=== PATIENT | female | born 1940 | race Caucasian/White ===

== ENCOUNTER → 2023-05-24 13:31 | Outpatient (REF) | payer OTHER, SELFPAY | LOC: DHCBS MAIN 13:31 | PROVIDERS: ATTENDING PHYSICIAN Internal Medicine Cardiovascular Disease; FAMILY PHYSICIAN Family Medicine | DX: I10 Essential (primary) hypertension (principal) | CPT/HCPCS: 93306 ==

== ENCOUNTER → 2023-07-17 15:53 | Outpatient (REF) | payer OTHER, SELFPAY ==
[2023-07-17 17:30] LABS: Blood Urea Nitrogen 22 mg/dl (7-17); Calcium 9.7 mg/dl (8.4-10.2); Carbon Dioxide 32 mmol/L (22-30); Chloride 98 mmol/L (98-107); Glucose 100 mg/dl (70-99); Potassium 3.8 mmol/L (3.5-5.1); Sodium 135 mmol/L (135-145); eGFR > 60.00
== END ==
LOC: REG 15:53
PROVIDERS: ATTENDING PHYSICIAN Family Medicine
DX: R10.9 Unspecified abdominal pain (principal)
CPT/HCPCS: 36415; 80048

== ENCOUNTER → 2023-07-22 12:23 | Outpatient (REF) | payer OTHER, SELFPAY | LOC: RAD 12:23 | PROVIDERS: ATTENDING PHYSICIAN Family Medicine; REFERRING PHYSICIAN Student in an Organized Health Care Education/Training Program | DX: R10.33 Periumbilical pain (principal) | CPT/HCPCS: 74177; Q9967 ==

== ENCOUNTER 2023-10-07 00:41 | Inpatient (IN) | payer OTHER, SELFPAY ==
[2023-10-06] VITALS (11 sets, daily range): BP systolic 88–109; BP diastolic 47–70; BMI 16.4
[2023-10-06 19:52] LABS: Hematocrit 35.7 % (37.0-47.0); Hemoglobin 12.6 g/dL (12.0-16.0); Mean Corp Hgb Conc. 35.3 g/dL (33.0-37.0); Mean Corpuscular Hgb 28.1 pg (27.0-31.0); Mean Corpuscular Volume 79.5 fL (81.0-99.0); Nucleated Red Blood Cells % 0 %; Red Blood Cell Count 4.49 10^6/uL (4.20-5.40); Red Cell Dist. Width 14.2 % (11.5-14.5); White Blood Cell Count 5.1 10^3/uL (4.8-10.8)
[2023-10-06 20:01] LABS: Lactic Acid 1.3 mmol/L (0.7-2.0)
[2023-10-06] MEDS: NSS 1000 IV ×2 (20:01→22:17)
[2023-10-06 20:02] LABS: ALT (SGPT) 21 U/L (0-35); AST (SGOT) 36 U/L (14-36); Alkaline Phosphatase 93 U/L (38-126); Blood Urea Nitrogen 52 mg/dl (7-17); Calcium 8.6 mg/dl (8.4-10.2); Carbon Dioxide 28 mmol/L (22-30); Chloride 94 mmol/L (98-107); Estimated Creatinine Clearance 26 ml/min; Glucose 116 mg/dl (70-99); Lipase 144 U/L (23-300); Potassium 3.7 mmol/L (3.5-5.1); Sodium 130 mmol/L (135-145); Total Bilirubin 1.7 mg/dl (0.2-1.3); Total Protein 7.1 g/dl (6.3-8.2); eGFR 41.06
[2023-10-06 20:13] LABS: Troponin I < 0.012 ng/ml
--- NOTE | 2023-10-06 20:17 | ED.GENMED ---
History of Present Illness
General
Chief Complaint: Abdominal Symptoms
Source: patient
Exam Limitations: none
Time Seen by Provider: 10/06/23 19:27
Nursing documentation reviewed up to this point in time: agreed with
History of Present Illness
History of Present Illness:
This a pleasant 82-year-old female who presents with right upper quadrant abdominal pain. She has had this pain for the last week. Today she developed fever and nausea. states that she has not been able to eat normally during this time.
She feels nauseated and has minimal appetite. Denies constipation or diarrhea. Reports no difficulty urinating. Denies fever prior to today but today she has had a 101.2 fever. Reports no previous abdominal surgery. 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
right eye since 2019.
Past History
Past History
ED Past Medical History: Cancer
ED Past Surgical History: Gynecological (Bilateral mastectomy)
Social History
Tobacco: Non-smoker
Personal:
Living: with family
Review of Systems
Review of Systems
Allergies reviewed?: Yes
Other source history: family
All Other Systems: ROS reviewed and negative except as documented in HPI and ROS
Constitutional: Reports weight loss and fatigue
EENT: Reports no symptoms
Respiratory: Reports no symptoms
Cardiac: Reports no symptoms
ABD/GI: Reports abdominal pain, nausea and vomiting; Denies bloody stools
: Reports no symptoms
Musculoskeletal: Reports no symptoms
Skin: Reports no symptoms
Neurological: Reports no symptoms
Endocrine: Reports no symptoms
Hematologic/Lymphatic: Reports no symptoms
Psychiatric: Reports no symptoms
Phy Exam
General Physical Exam
General Presentation: well appearing and mild distress
General age: appears stated age
General Skin: warm and dry
General Habitus: cachetic, elderly and frail
General Mental: alert
General Hydration: appears well hydrated
ENT Exam
ENT Exam: EOMI, pharynx normal, neck supple and normocephalic
Eye Exam
Eye Exam: PERRL, cornea clear and conjunctiva normal
Cardiovascular Exam
Cardiovascular Exam: regular rate/rhythm, no edema, no murmur and normal peripheral pulses
Pulmonary Exam
Pulmonary Exam: lungs clear, no respiratory distress, no rales, no crackles, no rhonchi, no stridor, no wheezing and no cough
Gastrointestinal Exam
Gastrointestinal Exam: normal bowel sounds
Palpation: right upper quadrant: Mild tenderness and generalized: No tenderness
Neurological Exam
Neurological Exam: alert, oriented x3, no motor deficits and speech normal
Musculoskeletal Exam
Musculoskeletal Exam: full ROM and no edema
Skin Exam
Skin Exam: normal color, warm/dry, no rash and no petechia
Psychiatric Exam
Psychiatric Exam: normal mood/affect
Course
Orders/Labs/Results
Orders:
Orders
10/06/23 19:17
Electrocardiogram (*1) Urgent
Reason for Study: Abdominal Pain
10/06/23 19:18
EKG- Treatment ONCE
10/06/23 19:24
IV Insert/Care/Rem.- Treatment PRN
10/06/23 19:31
Cardiac Monitoring- Treatment ONCE
10/06/23 19:38
Complete Blood Count/With Diff Urgent
Comprehensive Metabolic Panel Urgent
Lactic Acid Q4H
Comment: ON ICE, CANCEL 2ND ORDER IF FIRST LACTIC ACID LEVEL <2
Lipase Urgent
Manual Differential Urgent
Troponin I Urgent
Blood Culture Q30M
SHELBI Source: Blood/Venous
Specimen Description:
Comment: FROM 2 SEPARATE SITES
10/06/23 19:47
US Abdomen Complete/Upper Urgent
Comment:
Reason For Exam: abd pain, fever
10/06/23 19:48
0.9% Sodium Chloride 1000 ml [Nss] 1,000 ml IV BOLUS
10/06/23 20:03
Blood Culture Q30M
SHELBI Source: Blood/Venous
Specimen Description:
Comment: FROM 2 SEPARATE SITES
10/06/23 20:37
Acetaminophen 1000MG/100Ml [Ofirmev] 1,000 mg in 100 ml .ROUTE .STK-MED
10/06/23 20:45
Acetaminophen 10 mg/ml [Ofirmev] 735 mg Empty Viaflex Container 100 ml [Viaflex Empty Container] 0 ml IV ONCE
10/06/23 21:48
CT Chest Pe Study Urgent
Comment:
Reason For Exam: right lower lobe pain with inspiration
10/06/23 22:15
0.9% Sodium Chloride 1000 ml [Nss] 1,000 ml IV 250 mls/hr
10/06/23 22:37
Morphine Sulfate 2 mg .ROUTE .STK-MED ONE
10/06/23 22:39
Morphine Sulfate 2 mg IV NOW STA
Abnormal Lab Results
10/06/23
19:38
Hct 35.7 L %
(37.0-47.0)
MCV 79.5 L fL
(81.0-99.0)
Plt Count 70 L 10^3/uL
(130-400)
MPV 12.6 H fL
(7.4-10.4)
Monocytes (Manual) 15 H %
(2-9)
Sodium 130 L mmol/L
(135-145)
Chloride 94 L mmol/L
(98-107)
BUN 52 H mg/dl
(7-17)
Creatinine 1.3 H mg/dL
(0.6-1.0)
Glucose 116 H mg/dl
(70-99)
Total Bilirubin 1.7 H mg/dl
(0.2-1.3)
10/06/23 19:38
10/06/23 19:38
Vital Signs
Initial and Last Documented VS:
Initial Vital Signs
Temp Pulse Resp BP Pulse Ox
98.4 F 98 18 98/70 94
10/06/23 19:15 10/06/23 19:15 10/06/23 19:15 10/06/23 19:15 10/06/23 19:15
Last Documented Vital Signs
Temp Pulse Resp BP Pulse Ox
99.6 F 68 18 91/48 97
10/06/23 21:45 10/06/23 23:20 10/06/23 23:20 10/06/23 23:20 10/06/23 23:20
MDM/Problems Addressed
Differential Diagnosis Includes:
Cholecystitis, gastritis, colitis
MDM/Problems Addressed:
82-year-old female with abdominal pain in the right upper quadrant. Fever, loss of appetite.
*Radiology
Radiology exam reviewed: radiology read reviewed
*Pulse Oximetry
Patient hypoxic: yes
*Critical Care Note
Total Time (30-74mins, 75-104mins- exclusive of procedures): Not Applicable
Update Note
Update Note:
Back in to see the patient. We discussed lab work and ultrasound findings. Patient states that she is still having pain especially with inspiration. Will CT her chest.
CTPA
IMPRESSION:
Satisfactory contrast bolus, though assessment of some left lower lobe segmental and subsegmental branches is nondiagnostic due to motion artifact. Otherwise, no evidence of PE seen elsewhere.
Nodular opacities and tree-in-bud nodularity within the right upper lobe, right middle lobe, and right lower lobe, with mild bronchial wall thickening. This likely represents multifocal bronchopneumonia. Follow-up CT to assess for resolution is
recommended.
Additional findings: Left lower lobe pulmonary cyst. Bilateral breast implants. Vascular calcifications. DJD. Previous bilateral axillary chance dissections.
Patient had oxygen desaturation 80 to 89% on room air. Given the fact that she has pneumonia and desaturation, patient to be brought into the hospital for continued treatment. On 2 L nasal cannula her oxygen saturation is 97%.
ED Attending Note
-
Portions of this chart may have been created with voice recognition software.� Occasional wrong word or��sound alike� substitutions may have occurred due to the inherent limitations of voice recognition software.
Discharge Plan
Departure
Patient Disposition: Admit
Date of Disposition: 10/06/23
Time of Disposition: 23:38
Admit to: Telemetry
Presentation/result/management discussed w/ accepting MD/DO: Hospitalist
Discharge Problem:
Pneumonia, Hypoxia
Prescriptions:
No Action
metoprolol succinate 50 mg Tablet Extended Release 24 Hr
50 mg PO DAILY
amlodipine 2.5 mg Tablet
2.5 mg PO DAILY
losartan-hydrochlorothiazide 100-25 mg Tablet
1 tab PO DAILY
Referrals:
Argenis Gardner DO [Family Provider] -
Interventions
Interventions:
*Risk Screen - Suicide Last Done: 10/06/23 19:15
*General Assessment Last Done: 10/06/23 19:15
*Neglect/Abuse Screening Last Done: 10/06/23 19:15
QE-Uzwfqd-Dikxlswngw Assessment Last Done: 10/06/23 19:40
Discharge Date and Time
Print Language: ARGENTINE
[2023-10-06 20:26] LABS: Lymphocytes 31 % (20-51); Monocytes 15 % (2-9); Normal RBC Morphology Yes; Platelets Checked Yes; Total Cells Counted 100
[2023-10-06 20:27] LABS: Absolute Neutrophils -Man Diff 2.3 10^3/uL (1.4-6.5); Band Neutrophils 2 % (0-3); Segmented Neutrophils 44 % (42-75)
[2023-10-06 20:28] LABS: Mean Platelet Volume 12.6 fL (7.4-10.4); Platelet Count 70 10^3/uL (130-400)
[2023-10-06] MEDS: OFIRMEV 73.5 MG IV (21:10)
[2023-10-06] MEDS: MORPHINE SULFATE 2 MG IV (22:39)
[2023-10-06] MEDS: LEVAQUIN 150 IV (23:46)
[2023-10-07] VITALS (48 sets, daily range): BP systolic 81–137; BP diastolic 44–96; PULSE 76–98; O2SAT 90–96; BMI 17.2
--- NOTE | 2023-10-07 00:35 | HPS.HSE ---
Family Physician
-
Family Physician: Argenis Gardner
Chief Complaint
-
Anorexia, Abd Pain, Nausea
History of Present Illness
Patient is an 82y F with PMH significant for hypertension and BRAO / CVA who presents to ED complaining of abdominal pain, anorexia, nausea and fatigue. Patient states that she has been having intermittent discomfort in the RUQ area for the
past month or so. She notes poor appetite in general and nausea without emesis. Patient reports that her symptoms have been more severe over the past week. She states that she has not moved her bowels in about one week. She has also noted that
her BP at home has been running 'very low'. She did not take her usual medications today - but notes that she had been taking them prior to that. She reports shaking chills intermittently at home as well. No sore throat, cough, dyspnea or urinary
complaints. No known sick contacts. No recent med changes.
Patient denies any prior history of similar symptoms.
Medical History
Past Medical History
Past Medical History: Reports Other
Additional Past Medical History:
Hypertension
COPD
CRAO / CVA with Vision Loss
Breast Cancer
Melanoma
Past Surgical History: Reports Other
Additional Past Surgical History:
Bilateral Mastectomies
Bilateral Breast Reconstruction / Implants
T&A
Right Femur ORIF
Right WICHO
Social History
Tobacco: Former Smoker (Quit smoking in 1980s. Approx 20 pack years total use.)
Alcohol: Daily (1 glass wine daily)
Family History
Family History: Not pertinent
Allergies / Home Medications
Allergies reflects when Allergies were last updated in [employer].
Home Medications with original date entered in [employer]
Allergy/Medication List:
Allergies
Allergy/AdvReac Type Severity Reaction Status Date / Time
SESAR Inhibitors Allergy Anaphylaxis Verified 09/25/21 08:01
Penicillins Allergy Swelling Verified 09/25/21 08:01
of legs
Home Medications
amlodipine 2.5 mg tablet 2.5 mg PO DAILY 10/06/23
losartan 100 mg-hydrochlorothiazide 25 mg tablet 1 tab PO DAILY 10/06/23
metoprolol succinate 50 mg tablet,extended release 24 hr 50 mg PO DAILY 10/06/23
Review of Systems
-
History Source: Patient
A 12 point ROS was completed and negative except as noted: Yes
Constitutional: Reports Fever, Fatigue and Chills
EENT: Denies Sore Throat
Respiratory: Denies Cough, Hemoptysis or Trouble Breathing
Cardiac: Denies Chest Pain or Palpitations
Abdomen/GI: Reports Abdominal Pain, Nausea, Constipated and Anorexia; Denies Vomiting, Diarrhea, Bloody Stools or Black Stools
: Denies Dysuria, Frequency or Flank Pain
Musculoskeletal: Denies Joint Pain or Edema
Neurological: Denies Dizzy or Headache
Psych: Denies Depression or Anxiety
Physical Exam
Vital Signs
Vital Signs
Temp Pulse Resp BP Pulse Ox
99.6 F 76 21 93/44 98
10/06/23 21:45 10/07/23 00:30 10/07/23 00:30 10/07/23 00:30 10/07/23 00:30
Physical Exam
General: Other (82y F in no acute distress.)
HEENT: Moist mucous membranes
Respiratory: Clear; No Wheezes, Rales or Rhonchi
Cardiac: S1/S2 and Regular Rhythm; No Murmur
GI: Soft, Non Distended, Normal Bowel Sounds and Other (Mild RUQ tenderness without rebound / guarding. Pos BS.)
Musculoskeletal: No Clubbing, No Cyanosis and No Edema
Neuro: AO x 3
Laboratory Results
-
10/06/23 19:38
10/06/23 19:38
Laboratory Results
Lactic Acid Cancelled 10/06/23 23:45
Total Bilirubin 1.7 mg/dl (0.2-1.3) H 10/06/23 19:38
AST 36 U/L (14-36) 10/06/23 19:38
ALT 21 U/L (0-35) 10/06/23 19:38
Alkaline Phosphatase 93 U/L (38-126) 10/06/23 19:38
Troponin I < 0.012 ng/ml 10/06/23 19:38
Lipase 144 U/L (23-300) 10/06/23 19:38
Impression/Plan
-
A/P: Patient is an 82y F with PMH significant for hypertension and COPD who presents to ED complaining of abdominal discomfort, nausea and anorexia x weeks / one month.
Abdominal Pain
Nausea
- Admit for further evaluation and treatment.
- Symptoms potentially secondary to RLL process (see below).
- Check CT A/P given predominance of GI complaints and absence of pulmonary complaints.
- Supportive care for now.
- Avoid further hypotension. Treat underlying constipation. Follow for clinical improvement.
Right Bronchopneumonia
Acute Hypoxemic Respiratory Insufficiency
- CT scan with [id number] abnormalities in the R lung suspicious for bronchopneumonia.
- Negative for PE.
- Patient with fever here to 101.2 and SpO2 = 89% on room air.
- No cough, dyspnea, etc.
- Her RUQ pain is not pleuritic in nature.
- Continue levofloxacin for now.
- Follow-up additional work-up / evaluations.
- Follow for any new respiratory complaints.
CLEOPATRA
Hypotension
Mild Hyponatremia
History of Benign Hypertension
- SCr = 1.3 compared to known baseline of 0.8.
- Likely prerenal +/- degree of ATN due to hypotension.
- Hold all BP medications for now.
- IVF support overnight.
- Follow for improvement in BP / perfusion and return to baseline renal function.
- Follow for improvement in nausea, etc as well with improvement in BP / perfusion.
Thrombocytopenia
- Unclear etiology. No new meds, etc.
- ? secondary to infectious process.
- No evidence of anemia, red cell destruction, etc.
- Follow for any evidence of bleeding, ecchymosis or worsening platelet counts.
COPD without Acute Exacerbation
- No wheezing on exam. No pulmonary complaints from patient perspective.
- Has Rx for nebs to be used BID, but states that she only takes these PRN.
- DuoNebs ATC for now. Albuterol PRN.
CRAO / CVA
- Stable. Vision loss s/p prior insult.
- Monitor for any new issues / complaints.
DVT Prophylaxis: SCDs
Code Status: Full
[2023-10-07] MEDS: OMNIPAQUE 50 ML PO (00:50)
[2023-10-07 01:18] LABS: Procalcitonin 0.59 ng/ml (0.0-0.25)
--- NOTE | 2023-10-07 02:00 | PTCARENOTE ---
rec`d pt at 0200 AAOx3. blind in right eye since 2019. SR on monitor. scds. LR running. 20 left FA, 18LAC flushed and patent. + pulses. no edema. Dry cough. 4L NC POX 98%. diminished lung sounds. RLL coarse. no BM for a week per the pt. pt urinates
in toilet w/ 1 assist. skin c/d/i. call curry in reach. safe environment maintained.
[2023-10-07] MEDS: LR 1000 IV ×3 (02:23→19:00)
[2023-10-07 03:41] LABS: Hematocrit 31.8 % (37.0-47.0); Hemoglobin 10.9 g/dL (12.0-16.0); Mean Corp Hgb Conc. 34.3 g/dL (33.0-37.0); Mean Corpuscular Hgb 27.9 pg (27.0-31.0); Mean Corpuscular Volume 81.5 fL (81.0-99.0); Mean Platelet Volume 12.1 fL (7.4-10.4); Platelet Count 54 10^3/uL (130-400); Red Cell Dist. Width 14.5 % (11.5-14.5)
[2023-10-07 04:06] LABS: ALT (SGPT) 18 U/L (0-35); AST (SGOT) 31 U/L (14-36); Alkaline Phosphatase 79 U/L (38-126); Blood Urea Nitrogen 42 mg/dl (7-17); Calcium 7.7 mg/dl (8.4-10.2); Carbon Dioxide 25 mmol/L (22-30); Chloride 99 mmol/L (98-107); Direct Bilirubin 0.2 mg/dl (0.0-0.4); Estimated Creatinine Clearance 34 ml/min; Glucose 105 mg/dl (70-99); Magnesium 2.1 mg/dl (1.6-2.3); Phosphorus 3.3 mg/dl (2.5-4.5); Potassium 3.3 mmol/L (3.5-5.1); Sodium 131 mmol/L (135-145); Total Bilirubin 1.2 mg/dl (0.2-1.3); Total Protein 5.8 g/dl (6.3-8.2); eGFR 56.25
[2023-10-07 04:36] LABS: TSH Reflex To Free T4 4.73 uIU/ml (0.47-4.68)
[2023-10-07 05:04] LABS: Free T4 1.45 ng/dl (0.78-2.19)
[2023-10-07] MEDS: KCL 20 MEQ PO (05:09)
[2023-10-07] MEDS: COMPAZINE 5 MG IV (06:00)
[2023-10-07] MEDS: TYLENOL 650 MG PO ×2 (06:02→17:08)
[2023-10-07] MEDS: DUONEB 3 ML INH ×4 (07:57→19:31)
[2023-10-07] MEDS: COLACE PO ×2 (09:07→20:53)
[2023-10-07] MEDS: MIRALAX PO (09:08)
[2023-10-07] MEDS: NSS (PRESERVATIVE FREE) 10 ML IV (09:24)
[2023-10-07] MEDS: PROTONIX IV 40 MG IV (09:25)
--- NOTE | 2023-10-07 09:33 | PTCARENOTE ---
report received, assessments per work list. patient c/o intermittent mid/upper abdominal discomfort, described as sharp and intermittent. received Tylenol@0600. patient assisted to bedside commode, dizziness with position changes and standing. very
weak. orthostatic bp's as per work list. monitor nsr with pac. abdomen soft, nontender hyper active bowel sounds. voided dejan urine in commode. lungs with coarse breath sounds. diminished throughout. refusing oral medications at this time. states
'I want to go home'. call curry in reach. sleeping unless disturbed
--- NOTE | 2023-10-07 10:44 | PTCARENOTE ---
Addendum entered by Carol Cervantes RN 10/07/23 11:36:
report to oncoming RN
Original Note:
blood pressure trends per work list. Dr Alfaro updated by tiger text, at bedside to evaluate patient
--- NOTE | 2023-10-07 12:33 | W.PN.HOSP.TC ---
Today's Communication/Plan
-
IV abx
trend bp
monitor diet tolerance
Assessment / Plan
Assessment / Plan
General: Other (82y F in no acute distress.)
HEENT: Moist mucous membranes
Respiratory: Clear; No Wheezes, Rales or Rhonchi
Cardiac: S1/S2 and Regular Rhythm; No Murmur
GI: Soft, Non Distended, Normal Bowel Sounds and Other (Mild RUQ tenderness without rebound / guarding. Pos BS.)
Musculoskeletal: No Clubbing, No Cyanosis and No Edema
Neuro: AO x 3
A/P: Patient is an 82y F with PMH significant for hypertension and COPD who presents to ED complaining of abdominal discomfort, nausea and anorexia x weeks / one month.
Abdominal Pain
Nausea
- Symptoms potentially secondary to RLL process (see below).
- Check CT A/P -no acute findings in the abdomen/pelvis.
- Supportive care for now.
- Avoid further hypotension. Treat underlying constipation. Follow for clinical improvement.
Right Bronchopneumonia
Acute Hypoxemic Respiratory Insufficiency
- CT scan with [id number] abnormalities in the R lung suspicious for bronchopneumonia.
- Negative for PE.
- Patient with fever here to 101.2 and SpO2 = 89% on room air.
- No cough, dyspnea, etc.
- Her RUQ pain is not pleuritic in nature.
- Continue levofloxacin for now.
- Follow-up additional work-up / evaluations.
- Follow for any new respiratory complaints.
CLEOPATRA
Hypotension
Mild Hyponatremia
History of Benign Hypertension
- Creatinine is improving.
- Likely prerenal +/- degree of ATN due to hypotension.
- Hold all BP medications for now.
- IVF support. Levophed ordered but BP improved.
- Follow for improvement in BP / perfusion and return to baseline renal function.
- Follow for improvement in nausea, etc as well with improvement in BP / perfusion.
Thrombocytopenia
- Unclear etiology. No new meds, etc.
- ? secondary to infectious process.
- No evidence of anemia, red cell destruction, etc.
- Follow for any evidence of bleeding, ecchymosis or worsening platelet counts.
COPD without Acute Exacerbation
- No wheezing on exam. No pulmonary complaints from patient perspective.
- Has Rx for nebs to be used BID, but states that she only takes these PRN.
- DuoNebs ATC for now. Albuterol PRN.
CRAO / CVA
- Stable. Vision loss s/p prior insult.
- Monitor for any new issues / complaints.
Hypokalemia
-replete/monitor
Subclinical hypothyroidism
-repeat TFTs in 4-6 weeks
DVT Prophylaxis: SCDs in setting of thrombocytopenia
Code Status: Full
Anticipated Discharge: > 48 hours
Subjective/Interval History
-
Date of Service: October 07, 2023
complains R sided chest pain below rib cage
no epigastric pain
no nausea or vomiting
Objective Data
-
Labs:
Laboratory Results
10/07/23
03:31
WBC 4.0 L
Hgb 10.9 L
Hct 31.8 L
Plt Count 54 L D
Sodium 131 L
Potassium 3.3 L
Chloride 99
Carbon Dioxide 25
BUN 42 H
Creatinine 1.0
Glucose 105 H
Calcium 7.7 L
Total Bilirubin 1.2
AST 31
ALT 18
Alkaline Phosphatase 79
Vital Signs:
Vital Signs
Temp Pulse Resp BP Pulse Ox
97.8 F 77 19 113/66 97
10/07/23 11:12 10/07/23 11:30 10/07/23 11:30 10/07/23 12:00 10/07/23 11:30
I&O
10/06/23 10/07/23 10/08/23
06:59 06:59 06:59
Intake Total 375 / 500 750 / 750
Output Total 900 / 900 450 / 450
Balance -525 / -400 300 / 300
--- NOTE | 2023-10-07 13:12 | CM ---
CM following re: discharge planning.
Reviewed pt's chart, met with pt.
Pt is an 82 year old female, admitted with primary dx of Hypotension.
Pt reports she lives with in a [address], 4 steps to enter, has a son and is estranged from the family. pt brought to me her tearful feelings regarding their son stating that they adopted him at the age of 3 and they have not been hearing from him
for 4 years. Pt stated that all her energy and dedication did not bring a good result. Emotional support with reassurance offered and provided. Pt described herself as independent in all areas [employer], has RW, cane, raised toiled sit and she does not
use them. Pt expressed her desire to return back home at discharge and she anticipated no needs at discharge.
PCP: Argenis Gardner
Pharmacy: [facility].
D/C plan: home with anticipated no needs. Spouse to transport at discharge.
CM will follow with discharge pkan updates as hospitalization progresses
--- NOTE | 2023-10-07 13:54 | PTCARENOTE ---
Pt oob to chair w/ PT. Sat in chair for 30 min and wanted to get back to bed. Pt w/ rigors - temp checked multiple times but afebrile.
--- NOTE | 2023-10-07 20:30 | PTCARENOTE ---
human resources analyst, pt aaox3, denies pain. SR HR 80s-90s. pt assist x 1 to void in bathroom, assist back to chair. LA IV x 2 WNL- LR infusing per work list. RA Sat 94%. call patricio w/pt.
[2023-10-07] MEDS: SENOKOT PO (20:53)
[2023-10-07] MEDS: LEVAQUIN 50 IV (21:56)
[2023-10-08] VITALS (16 sets, daily range): BP systolic 90–132; BP diastolic 50–77; PULSE 77–106; O2SAT 96; BMI 18.2
[2023-10-08] MEDS: LR 1000 IV (03:30)
[2023-10-08 05:10] LABS: Hematocrit 29.6 % (37.0-47.0); Mean Corp Hgb Conc. 33.8 g/dL (33.0-37.0); Mean Corpuscular Volume 82.9 fL (81.0-99.0); Mean Platelet Volume 12.5 fL (7.4-10.4); Platelet Count 54 10^3/uL (130-400); Red Blood Cell Count 3.57 10^6/uL (4.20-5.40); Red Cell Dist. Width 14.3 % (11.5-14.5); White Blood Cell Count 4.4 10^3/uL (4.8-10.8)
[2023-10-08 05:35] LABS: Blood Urea Nitrogen 20 mg/dl (7-17); Calcium 8.1 mg/dl (8.4-10.2); Carbon Dioxide 25 mmol/L (22-30); Chloride 100 mmol/L (98-107); Estimated Creatinine Clearance 62 ml/min; Glucose 101 mg/dl (70-99); Potassium 3.9 mmol/L (3.5-5.1); Sodium 131 mmol/L (135-145); eGFR > 60.00
[2023-10-08] MEDS: DUONEB 3 ML INH ×4 (07:58→19:51)
[2023-10-08] MEDS: ProAmatine 5 MG PO ×3 (08:44→18:20)
[2023-10-08] MEDS: MIRALAX 17 GRAMS PO (08:44)
[2023-10-08] MEDS: NSS (PRESERVATIVE FREE) 10 ML IV (08:44)
[2023-10-08] MEDS: PROTONIX IV 40 MG IV (08:45)
[2023-10-08] MEDS: COLACE 100 MG PO ×2 (08:45→21:31)
--- NOTE | 2023-10-08 10:15 | PTCARENOTE ---
Patient oob to chair for breakfast, denies pain and nausea at this time. Pt requires standby assistance when ambulating due to unsteady gait/generalized weakness. RN provided education to patient on diet, plan of care, and medications. Patient has
call curry within reach, rings appropriately for oob assistance and makes needs known.
--- NOTE | 2023-10-08 12:07 | W.PN.HOSP.TC ---
Today's Communication/Plan
-
abx
monitor BP
trend cr
dc IVF
Advanced diet
tx out of IMU
pt/ot
Assessment / Plan
Assessment / Plan
General: Other (82y F in no acute distress.)
HEENT: Moist mucous membranes
Respiratory: Clear; No Wheezes, Rales or Rhonchi
Cardiac: S1/S2 and Regular Rhythm; No Murmur
GI: Soft, Non Distended, Normal Bowel Sounds and Non tender
Musculoskeletal: No Clubbing, No Cyanosis and No Edema
Neuro: AO x 3
A/P: Patient is an 82y F with PMH significant for hypertension and COPD who presents to ED complaining of abdominal discomfort, nausea and anorexia x weeks / one month.
Abdominal Pain
Nausea
- Symptoms potentially secondary to RLL process (see below).
- Check CT A/P -no acute findings in the abdomen/pelvis.
- Supportive care for now.
- Avoid further hypotension. Treat underlying constipation. Follow for clinical improvement.
Right Bronchopneumonia
Acute Hypoxemic Respiratory Insufficiency
- CT scan with [id number]-spd abnormalities in the R lung suspicious for bronchopneumonia.
- Negative for PE.
- Patient with fever here to 101.2 and SpO2 = 89% on room air on admisison
- No cough, dyspnea, etc.
- Her RUQ pain is not pleuritic in nature.
- Continue levofloxacin for now.
- Follow-up additional work-up / evaluations.
- Follow for any new respiratory complaints.
CLEOPATRA
Hypotension
Mild Hyponatremia
History of Benign Hypertension
- Creatinine improved.
- Likely prerenal +/- degree of ATN due to hypotension.
- Hold all BP medications for now.
- IVF support. Levophed ordered but BP improved. Started midodrine.
- Follow for improvement in BP / perfusion and return to baseline renal function.
- Follow for improvement in nausea, etc as well with improvement in BP / perfusion.
Thrombocytopenia
- Unclear etiology. No new meds, etc.
- ? secondary to infectious process.
- No evidence of anemia, red cell destruction, etc.
- Follow for any evidence of bleeding, ecchymosis or worsening platelet counts.
COPD without Acute Exacerbation
- No wheezing on exam. No pulmonary complaints from patient perspective.
- Has Rx for nebs to be used BID, but states that she only takes these PRN.
- DuoNebs ATC for now. Albuterol PRN.
CRAO / CVA
- Stable. Vision loss s/p prior insult.
- Monitor for any new issues / complaints.
Hypokalemia
-replete/monitor
Subclinical hypothyroidism
-repeat TFTs in 4-6 weeks
DVT Prophylaxis: SCDs in setting of thrombocytopenia
Code Status: Full
PT/OT
Anticipated Discharge: > 48 hours
Subjective/Interval History
-
Date of Service: October 08, 2023
Tolerating liquids
no abd or RUQ pain
on room air
Objective Data
-
Labs:
Laboratory Results
10/08/23
04:34
WBC 4.4 L
Hgb 10.0 L
Hct 29.6 L
Plt Count 54 L
Sodium 131 L
Potassium 3.9
Chloride 100
Carbon Dioxide 25
BUN 20 H
Creatinine 0.6
Glucose 101 H
Calcium 8.1 L
Vital Signs:
Vital Signs
Temp Pulse Resp BP Pulse Ox
98.3 F 88 18 100/63 96
10/08/23 11:59 10/08/23 11:36 10/08/23 11:36 10/08/23 08:44 10/08/23 11:36
I&O
10/07/23 10/08/23 10/09/23
06:59 06:59 06:59
Intake Total 375 / 500 3360 / 3360 490 / 490
Output Total 900 / 900 450 / 450
Balance -525 / -400 2910 / 2910 490 / 490
Data Reviewed
-
Total Time Spent with Patient (in minutes): 55
--- NOTE | 2023-10-08 16:21 | CM ---
CM following re: discharge planning.
Reviewed pt's chart, met with pt earlier today.
PT and OT evaluations noted - home PT vs SNF recommended. Pt is aware and she stated she will think about but she prefers home PT and [facility] preferred.
Av referral to [facility] made.
D/C plan: home with [facility] and family support. Please confirm the plan with the pt on the day of discharge.
CM will follow with discharge plan updates as hospitalization progresses
[2023-10-08] MEDS: TYLENOL 650 MG PO (17:03)
--- NOTE | 2023-10-08 17:29 | PTCARENOTE ---
1630 Pt complained of discomfort under right breast. Pt states ' that it is a achy feeling'. VSS EKG done. Dr. Alfaro made aware. Pt medicated with Tylenol with relief. Made patient comfortable. Cont to assess patient status.
[2023-10-08 17:58] LABS: Troponin I < 0.012 ng/ml
[2023-10-08] MEDS: SENOKOT 17.1999999999999993 MG PO (21:31)
[2023-10-08] MEDS: LEVAQUIN 50 IV (21:32)
[2023-10-09 00:59] LABS: Troponin I < 0.012 ng/ml
[2023-10-09 03:15] VITALS: BP 115/65
[2023-10-09 06:00] VITALS: BMI 17.3
[2023-10-09 07:30] VITALS: BP 100/58; BP 105/60; BP 92/64; PULSE 109; PULSE 81; PULSE 93
[2023-10-09] MEDS: DUONEB 3 ML INH ×2 (07:36→11:18)
[2023-10-09 07:46] LABS: Hematocrit 28.6 % (37.0-47.0); Hemoglobin 9.7 g/dL (12.0-16.0); Mean Corp Hgb Conc. 33.9 g/dL (33.0-37.0); Mean Corpuscular Hgb 27.6 pg (27.0-31.0); Mean Corpuscular Volume 81.3 fL (81.0-99.0); Platelet Count 84 10^3/uL (130-400); Red Blood Cell Count 3.52 10^6/uL (4.20-5.40); Red Cell Dist. Width 14.6 % (11.5-14.5); White Blood Cell Count 4.6 10^3/uL (4.8-10.8)
[2023-10-09 08:05] LABS: Blood Urea Nitrogen 16 mg/dl (7-17); Calcium 8.7 mg/dl (8.4-10.2); Carbon Dioxide 27 mmol/L (22-30); Chloride 102 mmol/L (98-107); Estimated Creatinine Clearance 51 ml/min; Glucose 101 mg/dl (70-99); Potassium 3.8 mmol/L (3.5-5.1); Sodium 136 mmol/L (135-145); eGFR > 60.00
[2023-10-09] MEDS: MIRALAX 17 GRAMS PO (08:28)
[2023-10-09] MEDS: NSS (PRESERVATIVE FREE) 10 ML IV (08:28)
[2023-10-09] MEDS: PROTONIX IV 40 MG IV (08:28)
[2023-10-09] MEDS: COLACE 100 MG PO (08:28)
[2023-10-09] MEDS: ProAmatine 5 MG PO (08:29)
[2023-10-09 08:48] LABS: Absolute Neutrophils -Man Diff 2.5 10^3/uL (1.4-6.5); Atypical Lymphocytes 2 %; Band Neutrophils 3 % (0-3); Eosinophils 2 % (0-6); Lymphocytes 19 % (20-51); Metamyelocytes 1 % (-); Monocytes 17 % (2-9); Myelocytes 1 % (-); Promyelocytes 1 % (-); Segmented Neutrophils 53 % (42-75)
[2023-10-09 08:49] LABS: Normal RBC Morphology Yes; Platelets Checked Yes; Total Cells Counted 100
[2023-10-09 11:01] VITALS: BP 107/52
--- NOTE | 2023-10-09 11:57 | W.PN.HOSP.TC ---
Addendum entered and electronically signed by Robert Alfaro MD 10/11/23 15:06:
severe protein calorie malnutrition of chronic illness
Original Note:
Today's Communication/Plan
-
dc home
Assessment / Plan
Assessment / Plan
General: Other (82y F in no acute distress.)
HEENT: Moist mucous membranes
Respiratory: Clear; No Wheezes, Rales or Rhonchi
Cardiac: S1/S2 and Regular Rhythm; No Murmur
GI: Soft, Non Distended, Normal Bowel Sounds and Non tender
Musculoskeletal: No Clubbing, No Cyanosis and No Edema
Neuro: AO x 3
A/P: Patient is an 82y F with PMH significant for hypertension and COPD who presents to ED complaining of abdominal discomfort, nausea and anorexia x weeks / one month.
Abdominal Pain
Nausea
- Symptoms potentially secondary to RLL process (see below).
- Check CT A/P -no acute findings in the abdomen/pelvis.
- Supportive care for now.
- Avoid further hypotension. Treat underlying constipation. Follow for clinical improvement.
- Resolved.
Right Bronchopneumonia
Acute Hypoxemic Respiratory Insufficiency
- CT scan with cmof-taq-dcl abnormalities in the R lung suspicious for bronchopneumonia. Recommend repeat CT chest as outpatient for resolution.
- Negative for PE.
- Patient with fever here to 101.2 and SpO2 = 89% on room air on admission
- No cough, dyspnea, etc. Stable on room air now
- Her RUQ pain is not pleuritic in nature.
- Continue levofloxacin for now.
- Follow-up additional work-up / evaluations.
- Follow for any new respiratory complaints.
CLEOPATRA
Hypotension
Mild Hyponatremia
History of Benign Hypertension
- Creatinine improved.
- Likely prerenal +/- degree of ATN due to hypotension.
- Hold all BP medications for now. Patient was on Norvasc 2.5 mg, Toprol, 50 mg, losartan 100 mg HCTZ 25 mg-patient blood pressure controlled and requiring midodrine. Off all blood pressure medication. Outpatient follow-up.
- IVF support. Levophed ordered but BP improved. Started midodrine.
- Follow for improvement in BP / perfusion and return to baseline renal function.
- Follow for improvement in nausea, etc as well with improvement in BP / perfusion.
Thrombocytopenia
- Unclear etiology. No new meds, etc.
- ? secondary to infectious process.
- No evidence of anemia, red cell destruction, etc.
- Follow for any evidence of bleeding, ecchymosis or worsening platelet counts.
- OP cbc. Platelets improving.
COPD without Acute Exacerbation
- No wheezing on exam. No pulmonary complaints from patient perspective.
- Has Rx for nebs to be used BID, but states that she only takes these PRN.
CRAO / CVA
- Stable. Vision loss s/p prior insult.
- Monitor for any new issues / complaints.
Hypokalemia
-replete/monitor
Subclinical hypothyroidism
-repeat TFTs in 4-6 weeks
DVT Prophylaxis: SCDs in setting of thrombocytopenia
Code Status: Full
PT/OT -SNF vs. Home PT.
More than 30 minutes spent in discharge including
Final examination of the patient
Summarizing hospital stay
Instructions for continuing care to all relevant caregivers
Preparation of discharge records, prescriptions, and referral forms
Total time spent (in minutes): 45
Anticipated Discharge: Today
Subjective/Interval History
-
Date of Service: October 09, 2023
no RUQ pain
tolerating diet
afebrile
on room air
bp stable
eating breakfast/tolerating diet
Objective Data
-
Labs:
Laboratory Results
10/09/23
07:17
WBC 4.6 L
Hgb 9.7 L
Hct 28.6 L
Plt Count 84 L D
Sodium 136
Potassium 3.8
Chloride 102
Carbon Dioxide 27
BUN 16
Creatinine 0.7
Glucose 101 H
Calcium 8.7
Vital Signs:
Vital Signs
Temp Pulse Resp BP Pulse Ox
98.1 F 88 18 107/52 95
10/09/23 11:01 10/09/23 11:18 10/09/23 11:18 10/09/23 11:01 10/09/23 11:01
I&O
10/08/23 10/09/23 10/10/23
06:59 06:59 06:59
Intake Total 3360 / 3360 1700 / 1700
Output Total 450 / 450
Balance 2910 / 2910 1700 / 1700
--- NOTE | 2023-10-09 12:04 | W.DCSUMMARY ---
Discharge Summary
Discharge Data
Date of Admission: 10/07/23
Date of Discharge: 10/09/23
-
Pending Results: No
Hospital Course
82 female past medical history of primary hypertension, COPD, CVA, CRAO who is presenting with complaint of abdominal discomfort nausea and anorexia. Patient upon admission underwent CT abdomen pelvis and ultrasound. CT abdominal pelvis with no
acute finding in the abdomen or pelvis. Mild heterogeneous appearance of both kidneys with patchy enhancement likely related to recent contrast and CT of the chest. No gross abnormality appreciated. Liver within normal limits gallbladder normal.
Bile duct normal pancreatic normals bowel no obstruction or wall thickening. Peritoneum with no free air. CT chest was done which showed no evidence of pulmonary embolism or thoracic aortic dissection. Scattered centrilobular nodules, tree-in-bud
with associated bronchial thickening with no right upper, right middle and right lower lobes most suggestive of bronchopneumonia. Patient also with severe hypertension and was started on IV fluid resuscitation. Patient also had CLEOPATRA which resolved
with IV fluid resuscitation. Patient was taken off blood pressure medication of Norvasc, losartan, hydrochlorothiazide and metoprolol. Patient blood pressure low and was started on midodrine. IV fluid was discontinued and patient was tolerating
diet. Patient blood pressure stabilized with midodrine. Patient was eval by PT and OT and recommended SNF versus home PT. Patient was maintained on Levaquin which was continued and based on improvement in creatinine clearance was uptitrated 750
mg. Patient preferred to go home.
Discharge Plan
-
Patient Disposition: Home with Home Care
Discharge Diagnosis/Procedures: Right upper quad abdominal pain
Nausea
Right bronchopneumonia
Acute hypoxic respiratory insufficiency
Acute kidney injury
Hypotension
Hyponatremia
Thrombocytopenia
Hypokalemia
Subclinical hypothyroidism
Condition: Fair
Diet: Regular
Activity: With assistance and As tolerated
Driving Restrictions: As prior to admission
Blood Work: CBC in 1 week with primary doctor
Repeat thyroid function testing in 4 to 6 weeks with primary doctor
Others Tests: Repeat CT chest to see resolution of pneumonia in 6 weeks with primary doctor
Referrals:
Argenis Gardner DO [Family Provider] - in less than 1 week
Additional Discharge Medication Instructions: Norvasc, losartan, hydrochlorothiazide Toprol was discontinued
Prescriptions:
New
midodrine 5 mg Tablet
5 mg PO TID@0800,1300,1800 Qty: 90 0RF
levofloxacin 750 mg tablet
750 mg PO DAILY 5 Days Qty: 5 0RF
Discontinued
metoprolol succinate 50 mg Tablet Extended Release 24 Hr
50 mg PO DAILY
amlodipine 2.5 mg Tablet
2.5 mg PO DAILY
losartan-hydrochlorothiazide 100-25 mg Tablet
1 tab PO DAILY
Discharge Orders:
Discharge Patient (As Directed); Ordered 10/09/23
Ordered By: Robert Alfaro
Discharge Date and Time
Print Language: FRISIAN
[2023-10-09] MEDS: ProAmatine PO (12:34)
--- NOTE | 2023-10-09 13:29 | CM ---
Order for VN received. Pt had previously agreed to [facility] services per documentation, however [facility], she refused [facility] services. [facility]N Liason advised patient to contact her PCP to request home care services if she changes
her mind after discharge.
Plan: Discharge to home with no services.
PCP: Argenis Gardner
Pharmacy: [facility]
--- NOTE | 2023-10-09 14:39 | VNURNOTE ---
Home Health Liaison met with patient at 1315 to discuss [facility] nurse/therapy, visits, schedule and homebound status. Patient is declining all services and does not feel it necessary. Liaison discussed that in the event she changes her mind once home
she could contact her PCP.
[facility] brochure provided with contact information and patient is aware that if she changes her mind she will need to have PCP set up [facility] once she is home
--- NOTE | 2023-10-11 10:57 | PN.CDI ---
CDI
- -
CDI:
Physician Documentation Request
Admit Date: 10/07/23 00:41
Dear Doctor Dominic,
Patient admitted with right bronchopneumonia.
10/06 Nutrition note, 'During visit RD able to observe protrusion of clavicle, temporal wasting, apparent ribs, orbital area sunken in, quad muscle wasting (pt with sequentials unable to observe calfs).... With weight loss of > 20% in 1 year,
observed muscle and fat wasting and < 75% estimated needs > 1 month pt meets AND/ASPEN criteria for severe protein calorie malnutrition of chronic illness.
Please provide in your note the diagnosis associated with the above findings and your assessment:
Severe protein calorie malnutrition
Moderate protein calorie malnutrition
Other (please specify)
[place] Criteria ([facility] Hospitalist 2017)
2 or more criteria must be present for either
non severe or severe malnutrition
Note that the criteria differs related to the
presence of an acute or chronic illness
Chronic Illness
Energy Intake Non Severe: <75% for >1 month
Severe: <75% for >1 month
Weight Loss Non Severe: 5% over 1 month
7.5% over 3 months
10% over 6 months
20% over 1 year
Severe: >5% over 1 month
>7.5% over 3 months
>10% over 6 months
>20% over 1 year
Body Fat Non Severe: Mild Loss
Severe: Severe Loss
Muscle Mass Non Severe: Mild Loss
Severe: Severe Loss
Fluid Accumulation Non Severe: Mild Accumulation
Severe: Moderate to severe
accumulation
Reduced [place] Strength Non Severe: N/A
Severe: Measurably reduced
Use of terms such as suspected, likely, concern for, or probable (associated with a specific diagnosis that is being evaluated, monitored, or treated as if it exists) are acceptable and can be coded in the inpatient setting, when documented at the
time of discharge.
Thank you,
Estelle CARR,RN,CCDS
CDI Specialist
Available via [place] text
Please use your independent medical judgment in providing your response.
== END 2023-10-09 14:33 | disposition home or self-care (01) | DRG 193 ==
LOC: 4 EAST ACU 00:41
PROVIDERS: Nurse Practitioner Family; ADMITTING PHYSICIAN Hospitalist; ATTENDING PHYSICIAN Hospitalist; EMERGENCY PHYSICIAN Student in an Organized Health Care Education/Training Program; FAMILY PHYSICIAN Family Medicine
DX: J18.0 Bronchopneumonia, unspecified organism (principal); E43 Unspecified severe protein-calorie malnutrition; E87.1 Hypo-osmolality and hyponatremia; N17.9 Acute kidney failure, unspecified; J44.0 Chronic obstructive pulmonary disease with (acute) lower respiratory infection; Z68.1 Body mass index [BMI] 19.9 or less, adult; R09.02 Hypoxemia; I95.9 Hypotension, unspecified; D69.6 Thrombocytopenia, unspecified; E87.6 Hypokalemia; E03.8 Other specified hypothyroidism; I10 Essential (primary) hypertension; R11.0 Nausea; R10.11 Right upper quadrant pain; K59.00 Constipation, unspecified; Z86.73 Personal history of transient ischemic attack (TIA), and cerebral infarction without residual deficits; Z87.891 Personal history of nicotine dependence
CPT/HCPCS: 71275; 74176; 76700; 80048; 80053; 80076; 83605; 83690; 83735; 84100; 84145; 84439; 84443; 84484; 85025; 85027; 87040; 93005; 94640; 96361; 96365; 96375; 97116; 97163; 97167; 97530; 99285; Q9967

== ENCOUNTER → 2023-11-07 10:42 | Outpatient (REF) | payer OTHER, SELFPAY | LOC: RAD 10:42 | PROVIDERS: ATTENDING PHYSICIAN Family Medicine | DX: J18.9 Pneumonia, unspecified organism (principal); I10 Essential (primary) hypertension | CPT/HCPCS: 71046; 71250 ==

== ENCOUNTER → 2023-11-11 09:49 | Outpatient (REF) | payer OTHER, SELFPAY | LOC: RST 09:49 | PROVIDERS: ATTENDING PHYSICIAN Nurse Practitioner Adult Health; FAMILY PHYSICIAN Family Medicine | DX: Z09 Encounter for follow-up examination after completed treatment for conditions other than malignant neoplasm (principal) | CPT/HCPCS: 74230; 92611 ==

== ENCOUNTER → 2024-01-29 13:14 | Outpatient (REF) | payer OTHER, SELFPAY | LOC: HWRAD 13:14 | PROVIDERS: ATTENDING PHYSICIAN Family Medicine | DX: M25.561 Pain in right knee (principal); M79.671 Pain in right foot | CPT/HCPCS: 73564; 73630 ==

== ENCOUNTER → 2024-02-04 13:11 | Outpatient (REF) | payer OTHER, SELFPAY | LOC: RAD 13:11 | PROVIDERS: ATTENDING PHYSICIAN Student in an Organized Health Care Education/Training Program; FAMILY PHYSICIAN Family Medicine | DX: M25.511 Pain in right shoulder (principal) | CPT/HCPCS: 73200 ==

== ENCOUNTER 2024-02-12 06:09 | Day surgery (SDC) | payer OTHER, SELFPAY ==
[2024-02-12] VITALS (10 sets, daily range): BP systolic 115–146; BP diastolic 68–87; BMI 17.9
[2024-02-12] MEDS: TYLENOL 1000 MG PO (06:39)
[2024-02-12] MEDS: CELEBREX 200 MG PO (06:39)
[2024-02-12 08:55] LABS: Glycohemoglobin (HgbA1c) 5.6 % (4.0-5.6)
[2024-02-12] MEDS: ANCEF 5 IV (11:04)
== END 2024-02-12 11:15 | disposition home or self-care (01) ==
LOC: SDS 06:09
PROVIDERS: ATTENDING PHYSICIAN Orthopaedic Surgery Hand Surgery
DX: M19.011 Primary osteoarthritis, right shoulder (principal); M75.101 Unspecified rotator cuff tear or rupture of right shoulder, not specified as traumatic
CPT/HCPCS: 23472; 73020; 83036; 86850; 86900; 86901; 87070; C1713; C1776

== ENCOUNTER → 2024-07-01 09:36 | Outpatient (REF) | payer OTHER, SELFPAY | LOC: RAD 09:36 | PROVIDERS: ATTENDING PHYSICIAN Internal Medicine Critical Care Medicine; FAMILY PHYSICIAN Family Medicine | DX: R05.3 Chronic cough (principal) | CPT/HCPCS: 71046 ==

== ENCOUNTER → 2025-02-08 09:54 | Outpatient (REF) | payer OTHER, SELFPAY | LOC: RAD 09:54 | PROVIDERS: ATTENDING PHYSICIAN Internal Medicine Rheumatology; FAMILY PHYSICIAN Family Medicine | DX: M19.90 Unspecified osteoarthritis, unspecified site (principal) | CPT/HCPCS: 73110; 73130; 73560; 73565 ==

== ENCOUNTER → 2025-03-16 07:11 | Outpatient (REF) | payer OTHER, SELFPAY | LOC: HWRAD 07:11 | PROVIDERS: ATTENDING PHYSICIAN Internal Medicine Rheumatology; FAMILY PHYSICIAN Family Medicine | DX: Z78.0 Asymptomatic menopausal state (principal) | CPT/HCPCS: 77080 ==